=== PATIENT | female | born 1965 ===

== ENCOUNTER 2016-12-17 18:39 | Emergency (ER) | payer OTHER ==
[2016-12-17 20:10] VITALS: BP 136/97
--- NOTE | 2016-12-17 20:26 | UC ---
Respiratory Complaint HPI - HPI Summary HPI Summary: coughing for 4 weeks. Saw her doctor, took Z-pack 11/30-12/05. Seemed to help a bit, but still coughing. Yesterday coughed so hard she felt something "pop" in right ribcage. Intense, stabbing pain now with cough. No fever. No vomiting. Cough is dry, no phlegm. No sinus congestion. Not helped by Elias jorgensen - History of Current Complaint Chief Complaint: UCGeneralIllness Stated Complaint: COUGH Time Seen by Provider: 12/17/16 20:16 Hx Obtained From: Patient Hx Last Menstrual Period: 12/17/16 perimenopausal Onset/Duration: Sudden Onset, Lasting Days - 2 Timing: Constant Severity Initially: Severe Severity Currently: Moderate Character: Cough: Nonproductive Aggravating Factors: Exertion, Deep Breaths Alleviating Factors: Nothing Associated Signs And Symptoms: Positive: Pleuritic Chest Pain, URI. Negative: Dyspnea, Fever, Chills, Wheezing, Hemoptysis, Dizziness, Nasal Congestion, Hoarseness, Sinus Discomfort - Risk Factors Pulmonary Embolism Risk Factors: Negative Cardiac Risk Factors: Negative Pseudomonas Risk Factors: Negative Tuberculosis Risk Factors: Negative - Allergies/Home Medications Allergies/Adverse Reactions: Allergies Allergy/AdvReac Type Severity Reaction Status Date / Time No Known Allergies Allergy Verified 12/17/16 20:10 Home Medications: Home Medications Benzonatate CAP* [Tessalon CAP*] 100 mg PO TID PRN 12/17/16 [History Confirmed 12/17/16] PMH/Surg Hx/FS Hx/Imm Hx Previously Healthy: Yes Neurological History Of: Reports: Migraine - Surgical History Surgical History: None - Family History Known Family History: Positive: Cardiac Disease, Hypertension - Social History Occupation: Employed Full-time Lives: With Family Alcohol Use: None Substance Use Type: None Smoking Status (MU): Never Smoked Tobacco Have You Smoked in the Last Year: No - Immunization History Most Recent Influenza Vaccination: none Review of Systems Constitutional: Negative Skin: Negative Eyes: Negative ENT: Negative Respiratory: Cough Cardiovascular: Chest Pain - right lateral Gastrointestinal: Negative Genitourinary: Negative Motor: Negative Neurovascular: Negative Musculoskeletal: Negative Neurological: Negative Psychological: Negative All Other Systems Reviewed And Are Negative: Yes Physical Exam Triage Information Reviewed: Yes Appearance: Well-Appearing, No Pain Distress, Well-Nourished Vital Signs: Initial Vital Signs Temp 98.2 F 12/17/16 20:05 Pulse 83 12/17/16 20:05 Resp 17 12/17/16 20:05 BP 136/97 12/17/16 20:05 Pulse Ox 100 12/17/16 20:05 Vital Signs Reviewed: Yes Eye Exam: Normal ENT Exam: Normal ENT: Positive: Pharynx normal, TMs normal. Negative: Tonsillar swelling, Tonsillar exudate, Trismus, Muffled/hoarse voice Neck exam: Normal Neck: Positive: Supple Respiratory Exam: Normal Respiratory: Positive: Lungs clear, Normal breath sounds, No respiratory distress, No accessory muscle use, Other: - she winces and cries out with deep breath, clutches right lateral ribs Cardiovascular Exam: Normal Cardiovascular: Positive: RRR Abdominal Exam: Normal Abdomen Description: Positive: Nontender Musculoskeletal Exam: Normal Neurological Exam: Normal Psychological Exam: Normal Skin Exam: Normal UC Diagnostic Evaluation - Laboratory O2 Sat by Pulse Oximetry: 100 Diagnostic Studies Comment: CXR normal Respiratory Course/Dx - Differential Dx/Diagnosis Differential Diagnosis/HQI/PQRI: Bronchitis, Lower Resp Infection, Other - rib fracture Provider Diagnoses: chest wall pain Discharge - Discharge Plan Condition: Stable Disposition: HOME Prescriptions: HYDROcodone/ACETAMIN 5-325 MG* [Ina 5-325 TAB*] 1 - 2 tab PO Q6H PRN #30 tab MDD 6 tab PRN Reason: pain or cough Patient Education Materials: Rib Fracture (ED) Referrals: Toni GARDNER,Sonja Batista [Primary Care Provider] -
--- NOTE | 2016-12-17 20:50 | RAD ---
INDICATION: Right pleuritic chest pain. Cough. COMPARISON: None TECHNIQUE: PA and lateral dual-energy views were obtained. FINDINGS: Bones/Soft Tissues: There are no acute bony findings. Cardiomediastinal: The cardiomediastinal silhouette is normal. Lungs: There is linear change in the lingular segment most consistent with atelectasis. The remaining lung paredes are clear.. Pleura: There are no pleural effusions. Other: None IMPRESSION: LINGULAR ATELECTASIS, OTHERWISE NEGATIVE.
[2016-12-17] MEDS ORDERED: HYDROcodone/ACETAMIN 5-325 MG* 1 TAB PO ONE (20:57)
== END 2016-12-17 21:25 | disposition home or self-care (01) ==
LOC: UCCORT 18:39
DX: R07.89 Other chest pain (principal)
CPT/HCPCS: 71020; 99212; G0463